=== PATIENT | male | born 1960 | race American Indian/Alaskan Native ===

== ENCOUNTER 2018-12-22 12:32 | Emergency (ER) | payer SELFPAY ==
[2018-12-22 12:38] VITALS: BP 143/83
--- NOTE | 2018-12-22 14:45 | Emergency Department Report ---
HPI - General Chief Complaint: Extremity Problem,Nontraumatic Time Seen by Provider: 12/22/18 13:54 - HPI HPI: 58-year-old male presents to the emergency department with a complaint of bilateral foot pain. Overall, this is been going on for the past 3 or 4 months. The pain is mostly to the heel and posterior mid foot. It is worst first thing in the morning but sometimes will also wake him up from sleep. He recently saw his primary care physician, Dr. Armani Jean, and says that he was ruled out for gout with some laboratory testing at that time. He denies any swelling, skin color change, warmth. He denies any significant past medical history. ED Past Medical Hx - Past Medical History Previous Medical History?: No - Surgical History Past Surgical History?: No - Social History Smoking Status: Current Every Day Smoker Substance Use Type: None - Medications Home Medications: Home Medications Medication Instructions Recorded Confirmed Last Taken Type Cephalexin [Keflex] 500 mg PO QID #28 capsule 02/27/14 Unknown Rx Promethazine [Phenergan] 25 mg PO Q6H PRN #20 tablet 02/27/14 Unknown Rx Sulfamethoxazole/Trimethoprim 1 each PO BID #14 tablet 02/27/14 Unknown Rx [Bactrim Ds] HYDROcodone/APAP 5-325 [[place] 1 each PO Q6HR PRN #12 tablet 12/22/18 Unknown Rx 5-325 mg TAB] Ibuprofen [Motrin 800 MG tab] 800 mg PO Q8HR PRN #20 tablet 12/22/18 Unknown Rx ED Review of Systems ROS: Stated complaint: FEET PAIN/SEVERE Other details as noted in HPI Comment: All other systems reviewed and negative Constitutional: denies: chills, fever Musculoskeletal: arthralgia. denies: joint swelling Skin: denies: rash, lesions Neurological: denies: numbness, paresthesias Physical Exam - Physical Exam Vital Signs: Vital Signs 12/22/18 12:37 Temperature 98.2 F Pulse Rate 77 Respiratory 16 Rate Blood Pressure 143/83 O2 Sat by Pulse 99 Oximetry Physical Exam: GENERAL: The patient is well-developed well-nourished. HENT: Normocephalic. Atraumatic. Patient has moist mucous membranes. EYES: Extraocular motions are intact. NECK: Supple. Trachea is midline. ABDOMEN: There is no abdominal distention. SKIN: Skin is warm and dry. NEURO: The patient is awake, alert, and oriented. The patient is cooperative. The patient has no focal neurologic deficits. The patient has normal speech. MUSCULOSKELETAL: Unable to reproduce the patient's heel and plantar foot pain to palpation. No obvious deformities. There is no limitation range of motion. There is no evidence of acute injury. ED Course Vital Signs 12/22/18 12:37 Temperature 98.2 F Pulse Rate 77 Respiratory 16 Rate Blood Pressure 143/83 O2 Sat by Pulse 99 Oximetry ED Medical Decision Making - Radiology Data Radiology results: report reviewed BILATERAL FOOT RADIOGRAPHS 3 VIEWS OF EACH FOOT INDICATION / CLINICAL INFORMATION: foot pain COMPARISON: None available. FINDINGS: Right: BONES / JOINT(S): No acute fracture or subluxation. There is bunion deformity of the right great toe MTP joint. Mild degenerative change in the interphalangeal joints. No focal lytic or sclerotic lesions are seen. SOFT TISSUES: No significant abnormality. ADDITIONAL FINDINGS: None. Left: FINDINGS: BONES / JOINT(S): No acute fracture or subluxation. There is degenerative change in the great toe MTP joint with mild bunion deformity. There is mild degenerative change in several interphalangeal joints . There is some degenerative change in the great toe tarsal metatarsal joint. SOFT TISSUES: No significant abnormality. ADDITIONAL FINDINGS: None. - Medical Decision Making This patient presents to the emergency department with acute on chronic bilateral foot pain that appears to be mostly involving his heels and midfoot. He was previously tested for gout but it was negative. On examination he does not have any obvious acute deformities. There is no warmth, skin color change, lesions, swelling. X-rays were done that did not show any fracture, dislocation or any acute process. Given the area of the patient's discomfort, I feel that plantar fasciitis is high on the differential. However the patient will be discharged home to follow up with podiatry. He will return to the ER with any worsening of his symptoms or any acute distress. - Differential Diagnosis osteoarthritis, plantar fasciitis, bone spurs Critical Care Time: No Critical care attestation.: If time is entered above; I have spent that time in minutes in the direct care of this critically ill patient, excluding procedure time. ED Disposition Clinical Impression: Bilateral foot pain, Plantar fasciitis Disposition: TO HOME OR SELFCARE Is pt being admited?: No Condition: Stable Instructions: Plantar Fasciitis (ED), Arthralgia (ED) Additional Instructions: I am giving her a referral for a few different local podiatrists to follow up regarding your foot pain. I have also given you some information regarding a condition known as plantar fasciitis, as I believe this could be one of the possibilities of your foot pain. Return to the emergency Department with any worsening of your symptoms or any acute distress. You have been prescribed a medication that is sedating and therefore should not be taken prior to driving, working, and responsible for children and in no way should be mixed with alcohol of any quantity. Prescriptions: Ibuprofen [Motrin 800 MG tab] 800 mg PO Q8HR PRN #20 tablet PRN Reason: Pain , Severe (7-10) HYDROcodone/APAP 5-325 [[place] 5-325 mg TAB] 1 each PO Q6HR PRN #12 tablet PRN Reason: Pain Referrals: JESSE ROSE DPM [Staff Physician] - 3-5 Days LASHAY CHATTERJEE MD [Staff Physician] - 3-5 Days Time of Disposition: 14:56
--- NOTE | 2018-12-22 14:50 | XRay Report ---
. BILATERAL FOOT RADIOGRAPHS 3 VIEWS OF EACH FOOT INDICATION / CLINICAL INFORMATION: foot pain COMPARISON: None available. FINDINGS: Right: BONES / JOINT(S): No acute fracture or subluxation. There is bunion deformity of the right great toe MTP joint. Mild degenerative change in the interphalangeal joints. No focal lytic or sclerotic lesion s are seen. SOFT TISSUES: No significant abnormality. ADDITIONAL FINDINGS: None. Left: FINDINGS: BONES / JOINT(S): No acute fracture or subluxation. There is degenerative change in the great toe MTP joint with mild bunion deformity. There is mild degenerative change in several interphalangeal joint s . There is some degenerative change in the great toe tarsal metatarsal joint. SOFT TISSUES: No significant abnormality. ADDITIONAL FINDINGS: None. Signer Name: Joselito Palma MD Signed: 12/22/2018 2:45 PM Workstation Name: [id number]
== END 2018-12-22 15:14 | disposition home or self-care (01) ==
LOC: ED 12:32
DX: M79.671 Pain in right foot (principal); M79.672 Pain in left foot; M72.2 Plantar fascial fibromatosis; F17.200 Nicotine dependence, unspecified, uncomplicated; Z79.1 Long term (current) use of non-steroidal anti-inflammatories (NSAID)
CPT/HCPCS: 99283

== ENCOUNTER 2019-06-12 12:15 | Emergency (ER) | payer OTHER ==
[2019-06-12] MEDS ORDERED: LEVALBUTEROL 1.25 MG/3 ML NEB IH ONE (12:41)
--- NOTE | 2019-06-12 12:56 | Event Note ---
ED Screening Note Date of service: 06/12/19 Time: 12:54 ED Screening Note: 58 y o male presents with nasal bridge swelling and redness cauding pain no visual disturbace This initial assessment/diagnostic orders/clinical plan/treatment(s) is/are subject to change based on patients health status, clinical progression and re- assessment by fellow clinical providers in the ED. Further treatment and workup at subsequent clinical providers discretion. Patient/guardian urged not to elope from the ED as their condition may be serious if not clinically assessed and managed. Initial orders include: acc eval ID
[2019-06-12] MEDS ORDERED: IBUPROFEN 800 MG TAB PO ONE (15:35)
[2019-06-12] MEDS ORDERED: LIDOCAINE-MPF (1%) 10 MG/1 ML VIAL 5 ML INFILTRATI ONE (15:46)
[2019-06-12] MEDS ORDERED: CLINDAMYCIN 300 MG CAP PO ONE (16:27)
--- NOTE | 2019-06-12 16:33 | Emergency Department Report ---
- General Chief complaint: Eye Problems Stated complaint: EYE ISSUE Time Seen by Provider: 06/12/19 15:00 Source: patient Mode of arrival: Ambulatory Limitations: No Limitations - History of Present Illness Initial comments: 58-year-old -[place] male patient complains of right facial abscess for 3 days. Patient states there was previously while there for many months that became inflamed and painful and swollen over the past few days. Seventh severity. Fever, vision changes, pain with eye movements of the right eye, or eye drainage MD complaint: abscess/boil - Related Data Previous Rx's Medication Instructions Recorded Last Taken Type Cephalexin [Keflex] 500 mg PO QID #28 capsule 02/27/14 Unknown Rx Promethazine [Phenergan] 25 mg PO Q6H PRN #20 tablet 02/27/14 Unknown Rx Sulfamethoxazole/Trimethoprim 1 each PO BID #14 tablet 02/27/14 Unknown Rx [Bactrim Ds] HYDROcodone/APAP 5-325 [[place] 1 each PO Q6HR PRN #12 tablet 12/22/18 Unknown Rx 5-325 mg TAB] Ibuprofen [Motrin 800 MG tab] 800 mg PO Q8HR PRN #20 tablet 12/22/18 Unknown Rx Clindamycin [Clindamycin CAP] 300 mg PO Q6H 10 Days #40 capsule 06/12/19 Unknown Rx Ibuprofen [Motrin 800 MG tab] 800 mg PO Q8HR PRN #15 tablet 06/12/19 Unknown Rx Mupirocin [Bactroban 2% OINT] 1 applic TP TID 7 Days #1 tube 06/12/19 Unknown Rx Triamcinolone Acetonide 80 gm TP TID PRN #1 tube 06/12/19 Unknown Rx Allergies Allergy/AdvReac Type Severity Reaction Status Date / Time No Known Allergies Allergy Unverified 02/27/14 16:11 Abscess Boil HPI - HPI Chief Complaint: Eye Problems Stated Complaint: EYE ISSUE Time Seen by Provider: 06/12/19 15:00 Home Medications: Previous Rx's Medication Instructions Recorded Last Taken Type Cephalexin [Keflex] 500 mg PO QID #28 capsule 02/27/14 Unknown Rx Promethazine [Phenergan] 25 mg PO Q6H PRN #20 tablet 02/27/14 Unknown Rx Sulfamethoxazole/Trimethoprim 1 each PO BID #14 tablet 02/27/14 Unknown Rx [Bactrim Ds] HYDROcodone/APAP 5-325 [[place] 1 each PO Q6HR PRN #12 tablet 12/22/18 Unknown Rx 5-325 mg TAB] Ibuprofen [Motrin 800 MG tab] 800 mg PO Q8HR PRN #20 tablet 12/22/18 Unknown Rx Clindamycin [Clindamycin CAP] 300 mg PO Q6H 10 Days #40 capsule 06/12/19 Unknown Rx Ibuprofen [Motrin 800 MG tab] 800 mg PO Q8HR PRN #15 tablet 06/12/19 Unknown Rx Mupirocin [Bactroban 2% OINT] 1 applic TP TID 7 Days #1 tube 06/12/19 Unknown Rx Triamcinolone Acetonide 80 gm TP TID PRN #1 tube 06/12/19 Unknown Rx Allergies/Adverse Reactions: Allergies Allergy/AdvReac Type Severity Reaction Status Date / Time No Known Allergies Allergy Unverified 02/27/14 16:11 ED Review of Systems ROS: Stated complaint: EYE ISSUE Other details as noted in HPI Constitutional: denies: chills, fever Eyes: denies: eye pain, eye discharge, vision change Skin: as per HPI ED Past Medical Hx - Past Medical History Previous Medical History?: No - Surgical History Past Surgical History?: No - Social History Smoking Status: Never Smoker Substance Use Type: None - Medications Home Medications: Home Medications Medication Instructions Recorded Confirmed Last Taken Type Cephalexin [Keflex] 500 mg PO QID #28 capsule 02/27/14 Unknown Rx Promethazine [Phenergan] 25 mg PO Q6H PRN #20 tablet 02/27/14 Unknown Rx Sulfamethoxazole/Trimethoprim 1 each PO BID #14 tablet 02/27/14 Unknown Rx [Bactrim Ds] HYDROcodone/APAP 5-325 [[place] 1 each PO Q6HR PRN #12 tablet 12/22/18 Unknown Rx 5-325 mg TAB] Ibuprofen [Motrin 800 MG tab] 800 mg PO Q8HR PRN #20 tablet 12/22/18 Unknown Rx Clindamycin [Clindamycin CAP] 300 mg PO Q6H 10 Days #40 capsule 06/12/19 Unknown Rx Ibuprofen [Motrin 800 MG tab] 800 mg PO Q8HR PRN #15 tablet 06/12/19 Unknown Rx Mupirocin [Bactroban 2% OINT] 1 applic TP TID 7 Days #1 tube 06/12/19 Unknown Rx Triamcinolone Acetonide 80 gm TP TID PRN #1 tube 06/12/19 Unknown Rx ED Physical Exam - General Limitations: No Limitations General appearance: alert, in no apparent distress - Head Head exam: Present: atraumatic, normocephalic - Eye Eye exam: Present: normal appearance, PERRL, EOMI (no pain noted with EOMI right eye). Absent: scleral icterus, conjunctival injection - ENT ENT exam: Present: mucous membranes moist - Neck Neck exam: Present: normal inspection - Respiratory Respiratory exam: Absent: respiratory distress - Cardiovascular Cardiovascular Exam: Present: regular rate - Neurological Exam Neurological exam: Present: alert, oriented X3 - Psychiatric Psychiatric exam: Present: normal affect, normal mood - Skin Skin exam: Present: warm, dry, intact, erythema (erythemic 2-3 cm round fluctuant abscess noted on right lateral nose near the corner of the right eye. Erythema noted about right eye without swelling. Patient is able to his eye without difficulty). Absent: rash ED Course Vital Signs 06/12/19 12:18 Temperature 97.7 F Pulse Rate 69 Respiratory 16 Rate Blood Pressure 138/84 O2 Sat by Pulse 99 Oximetry - I & D Face Type of Procedure: Simple Site: right upper nose Blade Size: 11 I & D Procedure: betadine prep, sterile drapes applied, sterile dressing applied Progress: Minimal bleeding. Area with 0.5 mL of lidocaine 1% without epi. Moderate purulent drainage obtained. Sample taken for wound culture. Patient tolerated procedure well without any immediate complications ED Medical Decision Making - Medical Decision Making 58-year-old patient here with an infected facial sebaceous cyst. Mild erythema noted about right eye, however patient denies any vision changes or pain with EOMs. Abscess was incised and drained. Wound culture was sent to lab. Patient given dose of clindamycin orally given erythema around the eye. Discussed wound care instructions in detail and strict return precautions patient verbalizes. Vitals are normal patient is stable for discharge home. She also requesting refill of triamcinolone ointment for his psoriasis. Critical care attestation.: If time is entered above; I have spent that time in minutes in the direct care of this critically ill patient, excluding procedure time. ED Disposition Clinical Impression: Infected sebaceous cyst Disposition: TO HOME OR SELFCARE Is pt being admited?: No Condition: Stable Instructions: Abscess Incision and Drainage (ED) Prescriptions: Mupirocin [Bactroban 2% OINT] 1 applic TP TID 7 Days #1 tube Clindamycin [Clindamycin CAP] 300 mg PO Q6H 10 Days #40 capsule Ibuprofen [Motrin 800 MG tab] 800 mg PO Q8HR PRN #15 tablet PRN Reason: pain Triamcinolone Acetonide 80 gm TP TID PRN #1 tube PRN Reason: Itching Referrals: ANGELINA MIX MD [Primary Care Provider] - 3-5 Days
[2019-06-12 17:20] VITALS: BP 159/98
== END 2019-06-12 17:18 | disposition home or self-care (01) ==
LOC: ED 12:15
DX: L72.3 Sebaceous cyst (principal)
CPT/HCPCS: 99282